=== PATIENT | male | born 1985 | race Two or more races ===

== ENCOUNTER 2022-05-06 17:10 | Outpatient (CLI) | payer MEDICAID ==
--- NOTE | 2022-05-06 17:38 | XRAY Report ---
PROCEDURE: Ribs w/PA Chest LT INDICATIONS: L FLANK PX TECHNIQUE: 3 views of the left ribs were acquired, along with a single view chest. COMPARISON: None FINDINGS: Surgical changes and devices: None. Bones and chest wall: A marker is placed upon the area of pain. At this site, no fractures are seen. No fractures or dislocations are seen elsewhere. No suspicious bony lesions. Age-appropriate degene rative changes are seen. The overlying soft tissues appear unremarkable. Lungs and pleura: No pleural effusions or pneumothorax. Lungs appear clear. Mediastinum: Mediastinal contours appear normal. Heart size is normal. IMPRESSION: Negative for rib fracture. No pneumothorax is seen. Reviewed by: Jeremi Sun MD on 05/06/2022 4:37 PM [facility] Approved by: Jeremi Sun MD on 05/06/2022 4:37 PM [facility] Station ID: [id number]
== END 2022-05-06 23:59 | disposition home or self-care (01) ==
LOC: DI.N 17:10
PROVIDERS: ATTEND Physician Assistant
DX: R10.9 Unspecified abdominal pain (principal)

== ENCOUNTER 2023-03-06 12:51 | Outpatient (CLI) | payer MEDICAID | END 2023-03-06 12:52 | disposition EMS.NT | LOC: EMS 12:51 | DX: R07.89 Other chest pain (principal); M25.561 Pain in right knee; V49.40XA Driver injured in collision with unspecified motor vehicles in traffic accident, initial encounter; Y92.414 Local residential or business street as the place of occurrence of the external cause ==

== ENCOUNTER 2023-03-20 15:24 | Outpatient (CLI) | payer OTHER, MEDICAID ==
--- NOTE | 2023-03-20 16:51 | XRAY Report ---
PROCEDURE: Hip w/Pelvis 2-3V RT INDICATIONS: HIP PAIN,RIGHT TECHNIQUE: AP pelvis with lateral view(s) of the right hip(s). COMPARISON: None. FINDINGS: Bones: No fractures or dislocations. No suspicious bony lesions. Soft tissues: No suspicious soft tissue calcifications or masses. IMPRESSION: No acute bony abnormality. No significant degenerative change. Reviewed by: Parish Escoto on 03/20/2023 4:50 PM PST Approved by: Parish Escoto on 03/20/2023 4:50 PM [facility] Station ID: [id number]
--- NOTE | 2023-03-20 16:53 | XRAY Report ---
PROCEDURE: Knee 3 View RT INDICATIONS: KNEE PAIN,RIGHT TECHNIQUE: 3 views of the knee(s) were acquired. COMPARISON: None. FINDINGS: Bones: No fractures or dislocations. No suspicious bony lesions. Tricompartmental joint space dain rowing with associated osteophytosis. Soft tissues: No knee joint effusion. No suspicious soft tissue calcifications or masses. IMPRESSION: No acute bony abnormality. Mild tricompartmental osteoarthritis. Kellgren-Keven scale of osteoarthritis: 2. Reviewed by: Parish Escoto on 03/20/2023 4:51 PM PST Approved by: Parish Escoto on 03/20/2023 4:51 PM PST Station ID: [id number]
--- NOTE | 2023-03-20 16:55 | XRAY Report ---
PROCEDURE: Lumbar Spine 2 View INDICATIONS: LOW BACK PAIN TECHNIQUE: 2 views of the lumbar spine were acquired. COMPARISON: None. FINDINGS: Bones: 5 [id number] vertebrae are present. Grade 1 retrolisthesis of L5 on S1. No vertebral maddison dy compression fractures. No suspicious bony lesions. Mild disc height loss at L5-S1. Early marginal osteophytes at all levels. Soft tissues: Overlying bowel gas pattern is normal. No suspicious soft tissue calcifications. IMPRESSION: Mild degenerative disc disease, most prominent at L5-S1. Reviewed by: Parish Escoto on 03/20/2023 4:53 PM [facility] Approved by: Parish Escoto on 03/20/2023 4:53 PM PST Station ID: [id number]
== END 2023-03-20 15:25 | disposition home or self-care (01) ==
LOC: DI 15:24
PROVIDERS: ATTEND Family Medicine
DX: M25.551 Pain in right hip (principal); M51.36 Other intervertebral disc degeneration, lumbar region; M51.37 Other intervertebral disc degeneration, lumbosacral region; M17.11 Unilateral primary osteoarthritis, right knee